=== PATIENT | male | born 1980 | race Caucasian/White ===

== ENCOUNTER 2018-02-09 21:48 | Emergency (ER) | payer SELFPAY ==
--- NOTE | 2018-02-09 21:54 | EDPHY ---
H & P Time Seen by Provider: 02/09/18 21:51 HPI/ROS: CHIEF COMPLAINT: Suicidal, alcohol abuse HISTORY OF PRESENT ILLNESS: 37-year-old homeless male history of schizoaffective disorder arrives via ambulance on an M1 hold after he drank 2 pintst of alcohol, texted friend that he was going to commit suicide. Denies self-injurious attempt. Denies coingestion. Denies complaints of pain or discomfort. Denies hallucination. REVIEW OF SYSTEMS: A ten point review of systems was performed and is negative with the exception of the items mentioned in the HPI PAST MEDICAL & SURGICAL HISTORY: Schizoaffective disorder SOCIAL HISTORY: Positive for alcohol use PHYSICAL EXAM (Prior to examination, patient consented to physical exam, hands were washed and my usual and customary physical exam procedures followed) 1) GENERAL: poorly kept, somnolent. 2) HEAD: Normocephalic, atraumatic 3) HEENT: Pupils equal, round, reactive to light bilaterally. Sclera anicteric. 4) NECK: Full range of motion, no meningeal signs. 5) LUNGS: Clear auscultation bilaterally, no wheezes, no rhonchi, no retractions. 6) HEART: Regular rate and rhythm, no murmur, no heave, no gallop. 7) ABDOMEN: No guarding, no rebound, no focal tenderness, 8) MUSCULOSKELETAL: Moving all extremities, no focal areas of tenderness, no obvious trauma. No peripheral edema or discoloration. 9) BACK: No obvious trauma, no visual or palpable abnormality. 10) SKIN: No rash, no petechiae. 11) Psychiatric: Patient is oriented X 3, there is no agitation. Mumbling depressed, flat affect DIFFERENTIAL DIAGNOSIS: In no particular order including but not limited to suicidal ideation, homicidal ideation, depression (Son,Jose Enrique Isa) Constitutional: Initial Vital Signs Temperature (C) 36.7 C 02/09/18 21:57 Heart Rate 76 02/09/18 21:57 Respiratory Rate 16 02/09/18 21:57 Blood Pressure 106/68 02/09/18 21:57 O2 Sat (%) 96 02/09/18 21:57 O2 Delivery Mode Room Air Medical Decision Making ED Course/Re-evaluation: 9:54 p.m.: Patient is on an M1 hold. Will obtain laboratory studies including serum alcohol and evaluate. Care of patient under supervision of secondary supervising physician Dr Mendez Felix. Midnight: Care turned over to Dr. Felix. Mental health evaluation in the morning. Patient calm and cooperative, resting comfortably. (Jose Enrique Cline) Other Provider: 0005 Care assumed by me from JEREMÍAS Cline. Patient is intoxicated in is claiming that he is suicidal. Awaiting evaluation. 0140 patient is awake. He is ambulating unassisted to the bathroom. Patient denies being suicidal at this time. He has no intention to harm himself. He is senait for safety. I have lifted the mental health hold. Plan [facility]. (Manuel Felix) - Data Points Laboratory Results: Laboratory Results 02/09/18 22:14 02/09/18 22:14 02/09/18 02/09/18 22:14 22:14 WBC 9.99 10^3/uL H 10^3/uL (3.80-9.50) RBC 5.13 10^6/uL 10^6/uL (4.40-6.38) Hgb 15.6 g/dL g/dL (13.7-17.5) Hct 44.4 % % (40.0-51.0) MCV 86.5 fL fL (81.5-99.8) MCH 30.4 pg pg (27.9-34.1) MCHC 35.1 g/dL g/dL (32.4-36.7) RDW 14.2 % % (11.5-15.2) Plt Count 289 10^3/uL 10^3/uL (150-400) MPV 9.6 fL fL (8.7-11.7) Neut % (Auto) 45.7 % % (39.3-74.2) Lymph % (Auto) 39.4 % % (15.0-45.0) [place] % (Auto) 11.9 % % (4.5-13.0) Eos % (Auto) 2.0 % % (0.6-7.6) Baso % (Auto) 0.6 % % (0.3-1.7) Nucleat RBC Rel Count 0.0 % % (0.0-0.2) Absolute Neuts (auto) 4.56 10^3/uL 10^3/uL (1.70-6.50) Absolute Lymphs (auto) 3.94 10^3/uL H 10^3/uL (1.00-3.00) Absolute Monos (auto) 1.19 10^3/uL H 10^3/uL (0.30-0.80) Absolute Eos (auto) 0.20 10^3/uL 10^3/uL (0.03-0.40) Absolute Basos (auto) 0.06 10^3/uL 10^3/uL (0.02-0.10) Absolute Nucleated RBC 0.00 10^3/uL 10^3/uL (0-0.01) Immature Gran % 0.4 % % (0.0-1.1) Immature Gran # 0.04 10^3/uL 10^3/uL (0.00-0.10) Sodium 141 mEq/L mEq/L (135-145) Potassium 3.8 mEq/L mEq/L (3.3-5.0) Chloride 107 mEq/L mEq/L (97-110) Carbon Dioxide 23 mEq/l mEq/l (22-31) Anion Gap 11 mEq/L mEq/L (8-16) BUN 10 mg/dL mg/dL (7-23) Creatinine 0.8 mg/dL mg/dL (0.7-1.3) Estimated GFR > 60 Glucose 100 mg/dL mg/dL (70-100) Calcium 8.7 mg/dL mg/dL (8.5-10.4) Ethyl Alcohol 169 mg/dL H mg/dL (0-10) Departure - Departure Disposition: Home, Routine, Self-Care Clinical Impression: Alcohol intoxication Condition: Good Instructions: Alcohol Intoxication (ED), Chlordiazepoxide (By mouth) Referrals: Patient,NotPresent [Primary Care Provider] - As per Instructions
[2018-02-09 22:00] VITALS: BP 106/68
[2018-02-09 23:19] LABS: PLATELET COUNT 289 10^3/uL (150-400)
[2018-02-09] MEDS ORDERED: LORazepam 1 MG TAB PO PRN (23:51)
[2018-02-09] MEDS ORDERED: LORazepam 2 MG/ML INJ IVP PRN (23:51)
[2018-02-10] MEDS ORDERED: CHLORDIAZEPOXIDE 25MG PREPK#6 BTL TAKEHOME ONE (01:43)
== END 2018-02-10 02:36 | disposition home or self-care (01) ==
DX: F10.129 Alcohol abuse with intoxication, unspecified (principal)
CPT/HCPCS: G0480

== ENCOUNTER 2018-02-25 13:31 | Emergency (ER) | payer MEDICAID ==
--- NOTE | 2018-02-25 14:07 | EDPHY ---
H & P Stated Complaint: SI - Personal History Current Tetanus/Diphtheria Vaccine: Yes Current Tetanus Diphtheria and Acellular Pertussis (TDAP): Yes - Medical/Surgical History Hx Asthma: Yes Hx Chronic Respiratory Disease: No Hx Diabetes: No Hx Cardiac Disease: No Hx Renal Disease: No Hx Cirrhosis: No Hx Alcoholism: No Hx HIV/AIDS: No Hx Splenectomy or Spleen Trauma: No Other PMH: schizoaffective disorder, asthma - Social History Smoking Status: Current every day smoker Time Seen by Provider: 02/25/18 13:53 HPI/ROS: CHIEF COMPLAINT: "I'm a fuck up" HISTORY OF PRESENT ILLNESS: 37-year-old male history of schizoaffective disorder, alcoholism, states that he has been drinking alcohol, drove himself to the ER because he was about to overdose on his medications. He did not attempt overdose. He actively endorses suicidal ideation in the presence of acute alcohol use. Denies other self-injurious behavior such as self cutting behavior. Denies hallucination. Denies homicidal ideation. He has previously been seen the ER for similar complaint. REVIEW OF SYSTEMS: A ten point review of systems was performed and is negative with the exception of the items mentioned in the HPI PAST MEDICAL & SURGICAL HISTORY: Schizoaffective disorder. SOCIAL HISTORY:Positive for acute alcohol use PHYSICAL EXAM (Prior to examination, patient consented to physical exam, hands were washed and my usual and customary physical exam procedures followed) 1) GENERAL: [Poorly kept, foul smelling, sleeping, easily woken, agitated W 2) HEAD: Normocephalic, atraumatic 3) HEENT: Pupils equal, round, reactive to light bilaterally. Sclera anicteric. 4) NECK: Full range of motion, no meningeal signs. 5) LUNGS: Clear auscultation bilaterally, no wheezes, no rhonchi, no retractions. 6) HEART: Regular rate and rhythm, no murmur, no heave, no gallop. 7) ABDOMEN: No guarding, no rebound, no focal tenderness,, 8) MUSCULOSKELETAL: Moving all extremities, no focal areas of tenderness, no obvious trauma. No peripheral edema or discoloration. 9) BACK: No CVA tenderness, no midline vertebral tenderness, no fluctuance, no step-off, no obvious trauma, no visual or palpable abnormality. 10) SKIN: No rash, no petechiae. 11) Psychiatric: Patient is oriented X 3, agitated DIFFERENTIAL DIAGNOSIS: In no particular order including but not limited to suicidal ideation, homicidal ideation, depression, acute alcohol use (Jose Enrique Cline) Constitutional: Initial Vital Signs Temperature (C) 36.8 C 02/25/18 13:36 Heart Rate 87 02/25/18 13:36 Respiratory Rate 16 02/25/18 13:36 Blood Pressure 97/64 L 02/25/18 13:36 O2 Sat (%) 96 02/25/18 13:36 O2 Delivery Mode Room Air Allergies/Adverse Reactions: No Known Allergies Allergy (Unverified 02/25/18 13:35) Home Medications: Medication Instructions Recorded Gabapentin 02/25/18 Zyprexa 02/25/18 hydrOXYzine HCL 02/25/18 Medical Decision Making ED Course/Re-evaluation: 2:05 p.m.: Patient placed on an emergency department as I do not think he is capable of making decisions in his best interest, he admits to alcohol use, admits to suicidal ideation with plan to overdose. He will need to sober in the ER prior to mental health evaluation. 5 pm: Care turned over to Dr Chino, awaiting mental health evaluation. ( Jose Enrique Cline) 5:00 p.m. patient is throwing trays in yelling at staff. Haldol, Benadryl, and Ativan IM Re-evaluation 8:00 p.m.. Patient is awake and still hostile but quiet. He is verbally threatening to staff telling them that he is going to kick there ass; however he is eating food and is currently calm. (Devaughn Chino) 7:00 a.m.-I assumed care of this patient at shift change. 10:30 a.m.-this patient was seen by mental health and felt appropriate for outpatient treatment of depression. I agree with this assessment. He denies suicidal or homicidal ideation. Encouraged to avoid alcohol. (Jessica Blevins) Care Turn Over: Care to Dr. Hill at 9:55 p.m. (Devaughn Chino) 6:35 a.m.- Patient has been stable overnight and sleeping for much of it. He is awaiting mental health evaluation this morning. The case will be signed out to the oncoming provider Dr. Blevins. ([facility]) - Data Points Laboratory Results: Laboratory Results 02/25/18 14:15 02/25/18 14:15 Medications Given: Discontinued Medications Diphenhydramine HCl (Benadryl Injection) 50 mg IM EDNOW ONE Stop: 02/25/18 17:07 Last Admin: 02/25/18 17:22 Dose: 50 mg Haloperidol Lactate (Haldol Injection) 10 mg IM EDNOW ONE Stop: 02/25/18 17:07 Last Admin: 02/25/18 17:22 Dose: 10 mg Lorazepam (Ativan Injection) 2 mg IM EDNOW ONE Stop: 02/25/18 17:07 Last Admin: 02/25/18 17:22 Dose: 2 mg Lorazepam (Ativan) 2 mg PO EDNOW ONE Stop: 02/26/18 08:39 Last Admin: 02/26/18 08:59 Dose: Not Given Lorazepam (Ativan) 1 mg PO EDNOW ONE Stop: 02/26/18 08:55 Last Admin: 02/26/18 08:58 Dose: 1 mg Nicotine (Nicoderm Cq) 21 mg TD EDNOW ONE Stop: 02/26/18 08:39 Last Admin: 02/26/18 08:58 Dose: 21 mg Departure - Departure Disposition: Home, Routine, Self-Care Clinical Impression: Suicidal ideation, Alcohol abuse Condition: Good Instructions: Suicide Prevention for Adults (ED) Referrals: [facility],. [Clinic] - As per Instructions
[2018-02-25 14:21] LABS: PLATELET COUNT 292 10^3/uL (150-400)
[2018-02-25] MEDS ORDERED: LORazepam 2 MG/ML INJ IM ONE (17:06)
[2018-02-25] MEDS ORDERED: HALOPERIDOL LACT 5 MG/ML INJ IM ONE (17:06)
[2018-02-26] MEDS ORDERED: NICOTINE 21 MG/24 HR PATCH TD ONE (08:38)
[2018-02-26] MEDS ORDERED: LORazepam 1 MG TAB PO ONE ×2 (08:38→08:54)
[2018-02-26] MEDS ORDERED: NICOTINE POLACRILEX 2 MG GUM B PRN (09:28)
[2018-02-26] MEDS ORDERED: NICOTINE POLACRILEX 2 MG GUM B ONE (09:29)
[2018-02-26 10:29] VITALS: BP 133/82
== END 2018-02-26 10:28 | disposition home or self-care (01) ==
DX: R45.851 Suicidal ideations (principal); F10.10 Alcohol abuse, uncomplicated; J45.909 Unspecified asthma, uncomplicated; F17.200 Nicotine dependence, unspecified, uncomplicated
CPT/HCPCS: 80305; G0480; J1200; J1630; J2060

== ENCOUNTER 2018-03-25 14:54 | Emergency (ER) | payer MEDICAID ==
--- NOTE | 2018-03-25 15:11 | EDPHY ---
H & P Stated Complaint: SI. Source: Patient, Old records Exam Limitations: No limitations - Personal History Current Tetanus Diphtheria and Acellular Pertussis (TDAP): Yes - Medical/Surgical History Hx Asthma: Yes Hx Chronic Respiratory Disease: No Hx Diabetes: No Hx Cardiac Disease: No Hx Renal Disease: No Hx Cirrhosis: No Hx Alcoholism: No Hx HIV/AIDS: No Hx Splenectomy or Spleen Trauma: No Other PMH: schizoaffective disorder, asthma. SI. - Family History Significant Family History: No pertinent family hx - Social History Smoking Status: Current every day smoker Alcohol Use: Occasionally Drug Use: Marijuana Time Seen by Provider: 03/25/18 15:04 HPI/ROS: CHIEF COMPLAINT: Suicidality HISTORY OF PRESENT ILLNESS: The patient is a 37-year-old homeless man with history of schizoaffective disorder on Zyprexa and Neurontin. He brings himself to the emergency department stating that he felt suicidal earlier today. This is his 3rd visit in the last 3 months for similar symptoms. During the previous to he was eventually sent home but did threatened staff several times before he calmed down and eventually denied suicidality. He tells me that he has been [place] for 4 months. He denies recent illness. He admits to marijuana but denies alcohol or drugs today. He denies trauma. REVIEW OF SYSTEMS: Constitutional: denies: chills, fever, recent illness, recent injury EENTM: denies: blurred vision, double vision, nose congestion Respiratory: denies: cough, shortness of breath Cardiac: denies: chest pain, irregular heart rate, lightheadedness, palpitations Gastrointestinal/Abdominal: denies: abdominal pain, diarrhea, nausea, vomiting, blood streaked stools Genitourinary: denies: dysuria, frequency, hematuria, pain Musculoskeletal: denies: joint pain, muscle pain Skin: denies: lesions, rash, jaundice, bruising Neurological: denies: headache, numbness, paresthesia, tingling, dizziness, weakness Hematologic/Lymphatic: denies: blood clots, easy bleeding, easy bruising Immunologic/allergic: denies: HIV/AIDS, transplant EXAM: GENERAL: Well-appearing, well-nourished and in no acute distress. HEAD: Atraumatic, normocephalic. EYES: Pupils equal round and reactive to light, extraocular movements intact, sclera anicteric, conjunctiva are normal. ENT: TMs normal, nares patent, oropharynx clear without exudates. Moist mucous membranes. NECK: Normal range of motion, supple without lymphadenopathy or JVD. LUNGS: Breath sounds clear to auscultation bilaterally and equal. No wheezes rales or rhonchi. HEART: Regular rate and rhythm without murmurs, rubs or gallops. ABDOMEN: Soft, nontender, normoactive bowel sounds. No guarding, no rebound. No masses appreciated. BACK: No CVA tenderness, no spinal tenderness, step-offs or deformities EXTREMITIES: Normal range of motion, no pitting or edema. No clubbing or cyanosis. NEUROLOGICAL: Cranial nerves II through XII grossly intact. Normal speech, normal gait. 5/5 strength, normal movement in all extremities, normal sensation PSYCH: Answers questions appropriately, cooperative SKIN: Multiple chronic wounds consistent with picking (Pedro Lau) Constitutional: Initial Vital Signs Temperature (C) 36.7 C 03/25/18 14:57 Heart Rate 98 03/25/18 14:57 Respiratory Rate 16 03/25/18 14:57 Blood Pressure 103/70 03/25/18 14:57 O2 Sat (%) 94 03/25/18 14:57 O2 Delivery Mode Room Air Allergies/Adverse Reactions: No Known Allergies Allergy (Unverified 02/25/18 13:35) Home Medications: Medication Instructions Recorded Gabapentin 300 mg 02/25/18 Zyprexa 10 mg 02/25/18 hydrOXYzine HCL 50 mg 02/25/18 Medical Decision Making ED Course/Re-evaluation: 6:15 a.m.- The patient has been accepted at [facility] by [facility]. I have completed the EMTALA form. (Silvia Hill) The patient has been evaluated and is going to be placed. He is angry and threw his tray at security. His bed is going to be removed and I have ordered Haldol and Ativan IM. (Pedro Lau) Differential Diagnosis: Partial list of the Differential diagnosis considered include but were not limited to; substance abuse, anxiety, malingering, suicidality and although unlikely based on the history and physical exam, I also considered psychosis. I discussed these differential diagnoses and the plan with the patient as well as the usual and expected course. The patient understands that the diagnosis is provisional and that in medicine we are not always correct and that further workup is often warranted. Usual and customary warnings were given. All of the patient's questions were answered. The patient was instructed to return to the emergency department should the symptoms at all worsen or return, otherwise to followup with the physician as we discussed. (Pedro Lau) Other Provider: I assumed care of the patient at 0700. ([place]) - Data Points Laboratory Results: Laboratory Results 03/25/18 15:20 03/25/18 15:20 Medications Given: Discontinued Medications Haloperidol Lactate (Haldol Injection) 10 mg IM EDNOW ONE Stop: 03/25/18 20:04 Last Admin: 03/25/18 20:12 Dose: 10 mg Lorazepam (Ativan Injection) 2 mg IM EDNOW ONE Stop: 03/25/18 20:04 Last Admin: 03/25/18 20:13 Dose: 2 mg Nicotine (Nicoderm Cq) 21 mg TD EDNOW ONE Stop: 03/26/18 08:23 Last Admin: 03/26/18 08:23 Dose: 21 mg Departure - Departure Disposition: Other Psych, Not [place] Clinical Impression: Suicidal ideation Condition: Fair Referrals: NONE *PRIMARY CARE P,. [Primary Care Provider] - As per Instructions
[2018-03-25 15:29] LABS: PLATELET COUNT 271 10^3/uL (150-400)
[2018-03-25] MEDS ORDERED: LORazepam 2 MG/ML INJ IM ONE (20:03)
[2018-03-25] MEDS ORDERED: HALOPERIDOL LACT 5 MG/ML INJ IM ONE (20:03)
[2018-03-25] MEDS ORDERED: HALOPERIDOL LACT 5 MG/ML INJ ONE (20:06)
[2018-03-26 08:09] VITALS: BP 146/67
[2018-03-26] MEDS ORDERED: NICOTINE 21 MG/24 HR PATCH TD ONE ×2 (08:20→08:22)
== END 2018-03-26 08:47 ==
DX: R45.851 Suicidal ideations (principal); J45.909 Unspecified asthma, uncomplicated; F17.200 Nicotine dependence, unspecified, uncomplicated
CPT/HCPCS: 80305; G0480; J1630; J2060